=== PATIENT | male | born 1960 | race Caucasian/White ===

== ENCOUNTER 2016-08-19 21:25 | Emergency (ER) | payer OTHER ==
--- NOTE | 2016-08-20 05:13 | ER ---
ADMIT: 08/19/2016 RM/LOC: ER [facility] MR#: [id number] [facility] [id number] S[place]STON [address] [place] [address] [place] [id number] Emergency Room Report SEX: M AGE: 55 : 1960 DATE: 08/19/2016 The patient is a 55-year-old male, who rolled his left ankle walking in flip- flops on wet grass at home tonight, previous wrist fractures and Hoover fracture of left foot in the remote past. Exam remarkable for nontoxic, afebrile male, in moderate distress, tender over lateral malleolus. X-ray confirms nondisplaced distal fibular fracture with intact mortise, placed in knee-high boot after Haider wrap applied. Crutches, ice, elevate, rest. Toradol, Dilaudid, Reglan IM in the Emergency Department. Home with hydrocodone 5/325 mg #20 plus #6. Follow up with Dr. John this week. Terrell Sousa MD/ ryley JOB #: [id number] CC: Terrell Sousa MD, Attending Physician Mil John MD, Family Physician Jeremy Watson PA-C
== END 2016-08-19 23:02 | disposition home or self-care (01) ==
LOC: ER 21:25
DX: S82.62XA Displaced fracture of lateral malleolus of left fibula, initial encounter for closed fracture (principal); Z98.890 Other specified postprocedural states; X50.1XXA Overexertion from prolonged static or awkward postures, initial encounter; Y92.009 Unspecified place in unspecified non-institutional (private) residence as the place of occurrence of the external cause